=== PATIENT | male | born 1980 | race Caucasian/White ===

== ENCOUNTER 2016-10-21 09:33 | Day surgery (SDC) | payer OTHER, SELFPAY ==
[~2016-10-21 09:33] MED LIST: Dexamethasone 4 MG/ML SDV ONE; Lactated Ringers 1,000 ML IV SCH; Lactated Ringers 1,000 ML ONE; Midazolam 1 MG/ML 2 ML SDV ONE; Propofol 200 MG/20 ML SDV ONE; Sodium Chloride 0.9% 5 ML Syringe FLUSH PRN; ceFAZolin 1 GM Vial ONE; fentaNYL 250 MCG/5 ML SDV ONE
[2016-10-21] MEDS ORDERED: Rocuronium 50 MG/5 ML Vial IV ONE (10:00)
[2016-10-21] MEDS ORDERED: Midazolam 1 MG/ML 2 ML SDV IV ONE (10:00)
[2016-10-21] MEDS ORDERED: fentaNYL 250 MCG/5 ML SDV IV ONE (10:00)
[2016-10-21] MEDS ORDERED: Dexamethasone 4 MG/ML SDV IV ONE (10:00)
[2016-10-21] MEDS ORDERED: Succinylcholine 200 MG/10 ML MDV IV ONE (10:00)
[2016-10-21] MEDS ORDERED: ceFAZolin 1 GM Vial IV ONE (10:00)
[2016-10-21] MEDS ORDERED: Glycopyrrolate 0.2 MG/ML 5 ML MDV IV ONE (10:00)
[2016-10-21] MEDS ORDERED: ePHEDrine 50 MG/ML SDV IV ONE (10:00)
[2016-10-21] MEDS ORDERED: Propofol 200 MG/20 ML SDV IV ONE (10:00)
[2016-10-21] MEDS ORDERED: Neostigmine Methylsulfate 10 MG/10 ML MDV IV ONE (10:00)
[2016-10-21] MEDS ORDERED: Ondansetron 4 MG/2 ML SDV IV ONE (10:00)
[2016-10-21] MEDS ORDERED: Bupivacaine 0.5%/EPINEPHrine 1:200,000 30 ML SDV ONE (10:16)
[2016-10-21] MEDS ORDERED: ceFAZolin 1 GM Vial ONE ×2 (10:16→11:55)
[2016-10-21] MEDS ORDERED: Lactated Ringers 1,000 ML ONE ×2 (10:17→13:00)
[2016-10-21] MEDS ORDERED: Bupivacaine 0.5%/EPINEPHrine 1:200,000 30 ML SDV INFILT ONE (11:55)
[2016-10-21] MEDS ORDERED: Sodium Chloride 0.9% 20 ML SDV ONE (11:55)
[2016-10-21] MEDS ORDERED: Morphine 4 MG/ML Syringe IVPUSH PRN (12:15)
[2016-10-21] MEDS ORDERED: Ondansetron 4 MG/2 ML SDV IVPUSH PRN (12:16)
[2016-10-21] MEDS ORDERED: Morphine 2 MG/ML Syringe IVPUSH PRN (12:16)
[2016-10-21] MEDS ORDERED: fentaNYL 100 MCG/2 ML SDV IVPUSH PRN (12:16)
[2016-10-21] MEDS ORDERED: Metoprolol Tartrate 5 MG/5 ML SDV ONE (13:00)
--- NOTE | 2016-10-21 13:29 | PCM.OPNOTE ---
- General Post-Op/Procedure Note Date of Surgery/Procedure: 10/21/16 Operative Procedure(s): Laparoscopic cholecystectomy Findings: Moderately inflamed gallbladder was identified at surgery. Omental adhesions were present on the surface of the gallbladder. Pre Op Diagnosis: Chronic cholecystitis and cholelithiasis Post-Op Diagnosis: As above Anesthesia Technique: General ET Tube Primary Surgeon: Armando Beltrán Complications: None Condition: Good Free Text/Narrative:: INFORMED CONSENT: This patient is here today because of chronic cholecystitis and cholelithiasis. The operative procedure is laparoscopic cholecystectomy. The operative procedure and risks were discussed including all possible complications including infection, pain, bleeding, bile duct injury, internal organ injury, conversion to open procedure, reoperation, PE, . Anesthetic complications were handled by INSIDE SALES ADVISOR. The patient understands well and wishes to proceed. OPERATION PERFORMED: Laparoscopic cholecystectomy. PROCEDURE: The patient was kept in the supine position and a satisfactory general anesthetic was administered via endotracheal tube. The abdomen was thoroughly prepped and draped in the usual fashion. The supraumbilical fold was infiltrated with 1 mL of Marcaine 0.5% and a curvilinear incision was made. The incision was deepened through the subcutaneous tissue until we came down upon the fascial layer. We then held the fascial layer with two Farzad clamps and then introduced a Verre's needle directly into the abdominal cavity. The position of the needle was ascertained by the aspiration of a small quantity of air, free flow of saline, negative aspiration of blood. We then instilled CO2 gas into the abdominal cavity and developed an abdominal pressure of approximately 15 mm/Hg. At this point we removed the Verre's needle and reintroduced it over a sheath. This was followed by a 5/12.5 trocar and a camera. Inspection revealed a chronically inflamed gallbladder with some omental adhesions. The omental pad was quite thick. The rest of the abdominal contents were normal to visualization. Two 5 mm trocars were placed in the right hypochondriac region, one in the right midclavicular and the second on the anterior clavicle line and a third 11.5 trocar was inserted in the subxiphoid position under direct vision. The patient was then kept in the reverse Trendelenburg position with a slight tilt to the left side. The two ratchets were placed one on the fundus and one at the neck of the gallbladder. Dissection was begun at the neck of the gallbladder and the fat in this area was quite immense. We carefully dissected out the cystic artery and cystic duct separately and encircled both structures at approximately 1 to 1-1/2 cm. The critical view of [place] was obtained. We ligated each structure separately using endo clips. When ligating the cystic duct we made sure not to encroach upon the common duct in any way. We then used a hook cautery and gently dissected the gallbladder off its bed. The base gallbladder fossa was gently cauterized for additional hemostasis. The gallbladder was retrieved through the umbilical port. The alberto hepatis was thoroughly irrigated with normal saline, most of which was aspirated out. The abdomen was then slowly deflated and prior to removal of the last trocar we completely deflated the abdomen. The trocar sites were washed with Betadine solution and the fascial layer was closed with 0 Polysorb and the skin was closed using 4.0 Polysorb in a subcuticular fashion. We then instilled approximately 20 mL of Marcaine 0.5% with epinephrine between the four sites. Sterile pressure dressings were applied. The patient tolerated the procedure well. There were no operative complications. Sponge, needle, and instrument count were correct.
[2016-10-21] MEDS ORDERED: Metoprolol Tartrate 5 MG/5 ML SDV IVPUSH ONE (13:57)
[2016-10-21 17:29] VITALS: BP 147/80
== END 2016-10-21 18:10 | disposition home or self-care (01) ==
LOC: KA.SDS 09:33
PROVIDERS: ATTEND Family Medicine
DX: K80.10 Calculus of gallbladder with chronic cholecystitis without obstruction (principal); Z79.899 Other long term (current) drug therapy; E66.9 Obesity, unspecified; Z68.30 Body mass index [BMI] 30.0-30.9, adult; R53.83 Other fatigue
CPT/HCPCS: 00790; 47562; J0330; J0690; J1100; J2250; J2270; J2405; J2704; J2710; J3010; J7120; J3490

== ENCOUNTER 2017-05-28 08:18 | Emergency (ER) | payer SELFPAY ==
[2017-05-28] MEDS ORDERED: Aspirin 81 MG Tab.Chew PO ONE (08:56)
[2017-05-28] MEDS ORDERED: Nitroglycerin 0.4 MG Tab.SL SL ONE ×2 (08:56→09:30)
[2017-05-28] MEDS ORDERED: Heparin Sodium/D5W 25,000 UNITS/250 ML BAG IV SCH (09:15)
[2017-05-28] MEDS ORDERED: Tenecteplase 50 MG Kit IV ONE (09:21)
[2017-05-28] MEDS ORDERED: Heparin Sodium 5,000 Units/ML Vial IVPUSH ONE (09:27)
[2017-05-28 09:32] VITALS: BP 133/73
--- NOTE | 2017-05-28 09:42 | EDM.PDOC ---
ED HPI GENERAL MEDICAL PROBLEM - General Chief Complaint: Chest Pain Time Seen by Provider: 05/28/17 08:43 Source of Information: Reports: Patient History Limitations: Reports: No Limitations - History of Present Illness INITIAL COMMENTS - FREE TEXT/NARRATIVE: Patient presents with pain in mid-epigastrium that started at 0730 (while at work) with a sharp stabbing sensation and then a squeezing feeling that has persisted at a rating of 3-4/10. He also had a cold sweat and a feeling of cold running down anteriorly to both legs. No pain in upper chest, neck, jaw, shoulder or arms. He smokes but no diabetes or other identifiable cardiac risks or family history. He takes omeprazole for GERD but this doesn't feel like that he says. He had gallbladder surgery a year ago. Chest Pain Score (Numeric/FACES): 4 - Related Data Allergies Allergy/AdvReac Type Severity Reaction Status Date / Time No Known Drug Allergies Allergy Cannot Verified 05/28/17 08:35 Remember Home Meds: Home Meds Omeprazole 20 mg PO DAILY 11/11/15 [History] Past Medical History - Past Health History Medical/Surgical History: Denies Medical/Surgical History Respiratory History: Reports: Other (See Below) Other Respiratory History: borderline emphysema Gastrointestinal History: Reports: GERD, Other (See Below) Other Gastrointestinal History: abdominal pain - Infectious Disease History Infectious Disease History: Reports: None - Past Surgical History GI Surgical History: Reports: Cholecystectomy Social & Family History - Family History Cardiac: Reports: Hypertension Oncologic: Reports: Esophageal - Tobacco Use Smoking Status *Q: Current Every Day Smoker Years of Tobacco use: 19 Packs/Tins Daily: 1 Second Hand Smoke Exposure: Yes - Caffeine Use Caffeine Use: Reports: Coffee, Soda - Recreational Drug Use Recreational Drug Use: No ED ROS GENERAL - Review of Systems Review Of Systems: See Below Constitutional: Reports: Chills, Diaphoresis. Denies: Fever, Weakness HEENT: Denies: Throat Pain, Vision Change Respiratory: Denies: Shortness of Breath Cardiovascular: Reports: Chest Pain (lower middle/mid-epigastrium). Denies: Blood Pressure Problem, Lightheadedness, Syncope GI/Abdominal: Reports: Abdominal Pain (mid-epigastrium). Denies: Nausea, Vomiting : Reports: No Symptoms Musculoskeletal: Denies: Neck Pain, Shoulder Pain, Arm Pain, Back Pain, Hand Pain, Leg Pain Skin: Denies: Cyanosis, Jaundice, Mottled, Pallor, Diaphoresis Neurological: Denies: Confusion, Dizziness, Headache, Seizure, Syncope, Trouble Speaking, Difficulty Walking Psychiatric: Reports: Anxiety (after hearing diagnosis is somewhat anxious). Denies: Agitation Hematologic/Lymphatic: Denies: Easy Bleeding ED EXAM, GENERAL - Physical Exam Exam: See Below Exam Limited By: No Limitations General Appearance: Alert, WD/WN, No Apparent Distress Eye Exam: Bilateral Eye: EOMI, Normal Inspection, PERRL Ears: Normal External Exam, Hearing Grossly Normal Nose: Normal Inspection, No Blood Throat/Mouth: Normal Inspection, Normal Lips, Normal Voice, No Airway Compromise Head: Atraumatic, Normocephalic Neck: Normal Inspection, Supple, Full Range of Motion Respiratory/Chest: No Respiratory Distress, Lungs Clear, Normal Breath Sounds, No Accessory Muscle Use, Chest Non-Tender Cardiovascular: Normal Peripheral Pulses, Regular Rate, Rhythm, No Edema, No Gallop, No JVD, No Murmur Peripheral Pulses: 2+: Brachial (L), Brachial (R), Posterior Tibial (L), Posterior Tibial (R) GI/Abdominal: Normal Bowel Sounds, Soft, Non-Tender, No Organomegaly, No Distention Extremities: Normal Inspection, Normal Range of Motion, Non-Tender, No Pedal Edema Neurological: Alert, Oriented, Normal Cognition, No Motor/Sensory Deficits Psychiatric: Normal Affect, Normal Mood Skin Exam: Warm, Dry, Intact, Normal Color, No Rash Course - Vital Signs Last Recorded V/S: Last Vital Signs Temp 97.2 F 05/28/17 08:34 Pulse 85 05/28/17 09:10 Resp 20 05/28/17 09:10 BP 133/73 05/28/17 09:31 Pulse Ox 94 L 05/28/17 09:10 - Orders/Labs/Meds Orders: Active Orders 24 hr Category Date Time Status EKG Documentation Completion [RC] ASDIRECTED Care 05/28/17 08:23 Active Chest 1V Frontal [CR] Stat Exams 05/28/17 Ordered Heparin Sodium/D5W Med 05/28/17 09:15 Ordered 25,000 units in 250 ml IV TITRATE Nitroglycerin 25 MG in D5W @ 10 MCG/MIN (250ml) Premix Med 05/28/17 09:45 Ordered Nitroglycerin/D5W [Nitroglycerin 25 MG/D5W 250 ML] 25 mg in 250 ml IV TITRATE EKG 12 Lead [EK] Routine Ther 05/28/17 08:23 Ordered Medication Orders Heparin Sodium/Dextrose () 25,000 units in 250 mls @ 11.975 mls/hr IV TITRATE AMELIA; 12 UNITS/KG/HR PRN Reason: Protocol Last Admin: 05/28/17 09:29 Dose: 12 units/kg/hr, 11.975 mls/hr Nitroglycerin/Dextrose (Nitroglycerin 25 Mg/D5w 250 Ml) 25 mg in 250 mls @ 6 mls/hr IV TITRATE AMELIA; 10 MCG/MIN PRN Reason: Protocol Labs: Laboratory Tests 05/28/17 05/28/17 05/28/17 Range/Units 09:10 09:10 09:10 WBC 7.9 (5.0-10.0) 10^3/uL RBC 5.46 (4.50-6.00) 10^6/uL Hgb 15.7 (13.0-17.0) g/dL Hct 48.5 (40.0-52.0) % MCV 88.9 (82.0-92.0) fL MCH 28.8 (27.0-31.0) pg MCHC 32.4 (32.0-36.0) g/dL RDW 12.6 (11.5-14.5) % Plt Count 283 (150-300) 10^3/uL MPV 7.6 (7.4-10.4) fL Neut % (Auto) 54.0 (50.0-70.0) % Lymph % (Auto) 33.2 (20.0-40.0) % Ceiba % (Auto) 7.0 (2.0-8.0) % Eos % (Auto) 5.6 H (1.0-3.0) % Baso % (Auto) 0.2 (0.0-1.0) % Neut # (Auto) 4.3 (2.5-7.0) 10^3/uL Lymph # (Auto) 2.6 (1.0-4.0) 10^3/uL Ceiba # (Auto) 0.6 (0.1-0.8) 10^3/uL Eos # (Auto) 0.4 H (0.1-0.3) 10^3/uL Baso # (Auto) 0.0 (0.0-0.1) 10^3/uL PT (8.9-11.4) SEC INR (0.9-1.1) APTT (20.8-31.2) SEC Sodium 139 (136-145) mmol/L Potassium 4.0 (3.3-5.3) mmol/L Chloride 105 (98-115) mmol/L Carbon Dioxide 24.3 (21.0-32.0) mmol/L BUN 19 (6-25) mg/dL Creatinine 1.09 (0.51-1.17) mg/dL Est Cr Clr Drug Dosing 93.95 mL/min Estimated GFR (MDRD) > 60 mL/min Glucose 92 (70-110) mg/dL Calcium 8.6 L (8.7-10.3) mg/dL Magnesium 1.9 (1.8-2.4) mg/dL Total Bilirubin 0.5 (0.2-1.0) mg/dL AST 32 (15-37) U/L ALT 56 (12-78) U/L Alkaline Phosphatase 99 (46-116) IU/L Troponin I 0.06 (0.00-0.070) ng/mL Total Protein 7.4 (6.4-8.2) g/dL Albumin 3.85 (3.00-4.80) g/dL Lipase 125 (73-393) U/L 05/28/17 Range/Units 09:10 WBC (5.0-10.0) 10^3/uL RBC (4.50-6.00) 10^6/uL Hgb (13.0-17.0) g/dL Hct (40.0-52.0) % MCV (82.0-92.0) fL MCH (27.0-31.0) pg MCHC (32.0-36.0) g/dL RDW (11.5-14.5) % Plt Count (150-300) 10^3/uL MPV (7.4-10.4) fL Neut % (Auto) (50.0-70.0) % Lymph % (Auto) (20.0-40.0) % Ceiba % (Auto) (2.0-8.0) % Eos % (Auto) (1.0-3.0) % Baso % (Auto) (0.0-1.0) % Neut # (Auto) (2.5-7.0) 10^3/uL Lymph # (Auto) (1.0-4.0) 10^3/uL Ceiba # (Auto) (0.1-0.8) 10^3/uL Eos # (Auto) (0.1-0.3) 10^3/uL Baso # (Auto) (0.0-0.1) 10^3/uL PT 9.4 (8.9-11.4) SEC INR 0.9 (0.9-1.1) APTT 26.0 (20.8-31.2) SEC Sodium (136-145) mmol/L Potassium (3.3-5.3) mmol/L Chloride (98-115) mmol/L Carbon Dioxide (21.0-32.0) mmol/L BUN (6-25) mg/dL Creatinine (0.51-1.17) mg/dL Est Cr Clr Drug Dosing mL/min Estimated GFR (MDRD) mL/min Glucose (70-110) mg/dL Calcium (8.7-10.3) mg/dL Magnesium (1.8-2.4) mg/dL Total Bilirubin (0.2-1.0) mg/dL AST (15-37) U/L ALT (12-78) U/L Alkaline Phosphatase (46-116) IU/L Troponin I (0.00-0.070) ng/mL Total Protein (6.4-8.2) g/dL Albumin (3.00-4.80) g/dL Lipase (73-393) U/L Meds: Medications Generic Name Dose Route Start Last Admin Trade Name Freq PRN Reason Stop Dose Admin Heparin Sodium/Dextrose 25,000 units in 250 mls @ 11.975 mls/hr 05/28/17 09: 15 05/28/17 09:29 IV 12 units/kg/hr TITRATE AMELIA 11.975 mls/hr Protocol Administration 12 UNITS/KG/HR Nitroglycerin/Dextrose 25 mg in 250 mls @ 6 mls/hr 05/28/17 09:45 Nitroglycerin 25 Mg/D5w 250 Ml IV TITRATE AMELIA Protocol 10 MCG/MIN Discontinued Medications Generic Name Dose Route Start Last Admin Trade Name Enrico PRN Reason Stop Dose Admin Aspirin 324 mg 05/28/17 08:56 05/28/17 09:01 Aspirin PO 05/28/17 08:57 324 mg ONETIME ONE Administration Heparin Sodium (Porcine) 4,000 units 05/28/17 09:27 05/28/17 09:28 Heparin Sodium IVPUSH 05/28/17 09:28 4,000 units .BOLUS ONE Administration Nitroglycerin 0.4 mg 05/28/17 08:56 05/28/17 09:03 Nitrostat SL 05/28/17 08:57 0.4 mg ONETIME ONE Administration Nitroglycerin 0.4 mg 05/28/17 09:30 05/28/17 09:31 Nitrostat SL 05/28/17 09:31 0.4 mg ONETIME ONE Administration Tenecteplase 50 mg 05/28/17 09:21 05/28/17 09:40 Tnkase IV 05/28/17 09:22 50 mg ONETIME ONE Administration Protocol - Re-Assessments/Exams Free Text/Narrative Re-Assessment/Exam: 05/28/17 09:[address] elevation, less than 2 mm but still suspicious. I faxed to export sales manager (Dr. Dyson) at [facility] in [place] who is calling it STEMI and recommends Heparin bolus and drip and since he won't get up there for over an hour recommends lytic therapy. She wants him flown there but the weather doesn' t allow chopper and fixed wing would take longer than ground so we are transferring via ALS ground [facility]. He denies any recent surgery, stroke or brain bleeds, coagulation therapy. TNK contraindication sheet is reviewed and okay to proceed. TNK, heparin bolus and drip, nitro sl and drip and ASA 324 have been given. Following the initial nitro sublingual the pain quickly went completely away. Discussed findings and treatment plan with patient and his and daughters. Patient has remained stable throughout ER course. Departure - Departure Time of Disposition: 09:47 Disposition: DC/Tfer to Acute Hospital 02 Reason for Transfer *Q: Primary PCI Indicated Condition: Good Clinical Impression: STEMI (ST elevation myocardial infarction) Qualifiers: Involved coronary artery: unspecified coronary artery Qualified Code(s): I21.3 - ST elevation (STEMI) myocardial infarction of unspecified site Referrals: PCP,None [Primary Care Provider] - Forms: ED Department Discharge - My Orders Last 24 Hours: My Active Orders 05/28/17 Chest 1V Frontal [CR] Stat 05/28/17 08:23 EKG Documentation Completion [RC] ASDIRECTED EKG 12 Lead [EK] Routine 05/28/17 09:15 Heparin Sodium/D5W 25,000 units in 250 ml IV TITRATE 05/28/17 09:45 Nitroglycerin 25 MG in D5W @ 10 MCG/MIN (250ml) Premix Nitroglycerin/D5W [ Nitroglycerin 25 MG/D5W 250 ML] 25 mg in 250 ml IV TITRATE - Assessment/Plan Last 24 Hours: My Active Orders 05/28/17 Chest 1V Frontal [CR] Stat 05/28/17 08:23 EKG Documentation Completion [RC] ASDIRECTED EKG 12 Lead [EK] Routine 05/28/17 09:15 Heparin Sodium/D5W 25,000 units in 250 ml IV TITRATE 05/28/17 09:45 Nitroglycerin 25 MG in D5W @ 10 MCG/MIN (250ml) Premix Nitroglycerin/D5W [ Nitroglycerin 25 MG/D5W 250 ML] 25 mg in 250 ml IV TITRATE
[2017-05-28] MEDS ORDERED: DEXTROSE IV ONE (09:45)
[2017-05-28] MEDS ORDERED: NITROGLYCERIN IV ONE (09:45)
[2017-05-28] MEDS ORDERED: Nitroglycerin/D5W 25 MG/250 ML BOTTLE IV SCH (09:45)
[2017-05-28 09:51] LABS: CHLORIDE,CL 105 mmol/L (98-115); SODIUM,NA 139 mmol/L (136-145)
== END 2017-05-28 09:52 ==
LOC: KA.ED 08:18
DX: I21.3 ST elevation (STEMI) myocardial infarction of unspecified site (principal); F17.210 Nicotine dependence, cigarettes, uncomplicated; Z79.899 Other long term (current) drug therapy
CPT/HCPCS: 36415; 71045; 80053; 83690; 83735; 84484; 85025; 85610; 85730; 96365; 96375; 99285; A9270-GY; J1644; J3101

== ENCOUNTER 2017-06-28 08:07 | Day surgery (SDC) | payer SELFPAY ==
[2017-06-28] MEDS ORDERED: Midazolam 1 MG/ML 2 ML SDV ONE (08:11)
[2017-06-28] MEDS ORDERED: Lidocaine 2% 5 ML SDV ONE (08:12)
[2017-06-28] MEDS ORDERED: fentaNYL 100 MCG/2 ML SDV ONE (08:12)
[2017-06-28] MEDS ORDERED: Propofol 200 MG/20 ML SDV ONE (08:12)
[2017-06-28] MEDS ORDERED: EPINEPHrine 1:10,000 1 MG/10 ML Syringe ONE (08:13)
[2017-06-28] MEDS ORDERED: Lactated Ringers 1,000 ML IV SCH (08:30)
[2017-06-28] MEDS ORDERED: Sodium Chloride 0.9% 5 ML Syringe FLUSH PRN (08:30)
[2017-06-28] MEDS ORDERED: fentaNYL 100 MCG/2 ML SDV IV ONE (10:21)
[2017-06-28] MEDS ORDERED: Midazolam 1 MG/ML 2 ML SDV IV ONE (10:21)
[2017-06-28] MEDS ORDERED: Propofol 200 MG/20 ML SDV IV ONE (10:21)
--- NOTE | 2017-06-28 10:54 | PCM.OPNOTE ---
- General Post-Op/Procedure Note Date of Surgery/Procedure: 06/28/17 Operative Procedure(s): Upper GI endoscopy with biopsies. Findings: This patient has evidence of moderate to severe reflux esophagitis and a hiatal hernia. Also has mild antral gastritis and a few gastric polyps. Biopsies were taken of the largest gastric polyp. Anesthesia Technique: MAC Primary Surgeon: Armando Beltrán Condition: Good Free Text/Narrative:: INFORMED CONSENT: Patient is here today for elective upper GI endoscopy. All aspects of this procedure have been discussed with the patient. All possible complications also, including possibility of perforation, infection, pain, bleeding, numbness of the throat, swallowing difficulty and unknown complications. In the event of perforation the patient may need surgical exploration to repair the defect. The patient understands fully well. Patient did not have any further questions for me at the end of my interview. The patient wishes for me to proceed. INSTRUMENT USED: Video gastroscope ANESTHESIA: [MAC] ASA CLASSIFICATION: [2] PROCEDURE PERFORMED: [Upper gastrointestinal endoscopy with biopsies.] PHARYNX: Normal. ESOPHAGUS: Normal. Proximal: Normal. Middle: Normal. Lower: Normal. GE Junction: Moderate to severe reflux is noted. There is a 5 cm hiatal hernia noted.. STOMACH: Normal. Cardia: Normal. Fundus: Normal. Lesser Curvature: Normal. Greater Curvature: A few gastric polyps noted. Biopsies taken from the largest gastric polyp using hot biopsy forceps.. Antrum: Moderate inflammation noted.. Pylorus: Normal. DUODENUM: Normal. First Part: Normal. Second Part: Normal. Third Part: Normal. RETROFLEXION: Normal. BIOPSY: None. TOLERANCE: Excellent. COMPLICATIONS: None. 1. Moderate severe reflux noted. 2. A few gastric polyps noted. 3. Moderate antral gastritis noted.
[2017-06-28 11:39] VITALS: BP 120/63
== END 2017-06-28 12:00 | disposition home or self-care (01) ==
LOC: KA.SDS 08:07
PROVIDERS: ATTEND Family Medicine
DX: K31.7 Polyp of stomach and duodenum (principal); L92.8 Other granulomatous disorders of the skin and subcutaneous tissue; K21.9 Gastro-esophageal reflux disease without esophagitis; K44.9 Diaphragmatic hernia without obstruction or gangrene; Z87.891 Personal history of nicotine dependence; Z79.899 Other long term (current) drug therapy
CPT/HCPCS: 00731; J2250; J2704; J3010; J7120

== ENCOUNTER 2017-07-13 10:41 | Day surgery (SDC) | payer SELFPAY ==
[2017-07-13] MEDS ORDERED: EPINEPHrine 1:10,000 1 MG/10 ML Syringe ONE (10:50)
[2017-07-13] MEDS ORDERED: Sodium Chloride 0.9% 5 ML Syringe FLUSH PRN (11:00)
[2017-07-13] MEDS ORDERED: Lactated Ringers 1,000 ML IV SCH (11:00)
[2017-07-13] MEDS ORDERED: Propofol 200 MG/20 ML SDV ONE (11:10)
[2017-07-13] MEDS ORDERED: Midazolam 1 MG/ML 2 ML SDV ONE (11:10)
[2017-07-13] MEDS ORDERED: fentaNYL 100 MCG/2 ML SDV ONE (11:10)
[2017-07-13] MEDS ORDERED: Propofol 200 MG/20 ML SDV IV ONE (12:11)
[2017-07-13] MEDS ORDERED: Midazolam 1 MG/ML 2 ML SDV IV ONE (12:11)
[2017-07-13] MEDS ORDERED: fentaNYL 100 MCG/2 ML SDV IV ONE (12:11)
--- NOTE | 2017-07-13 12:55 | PCM.PRNOTE ---
- Free Text/Narrative Note: INFORMED CONSENT: Patient is here today for elective colonoscopy. All aspects of this procedure have been discussed with the patient. All possible complications also, including possibility of perforation, infection, pain, bleeding and unknown complications. In the event of perforation patient may need to have abdominal exploration, colon resection, colostomy and even was discussed. Anesthetic complications were handled by anesthesia department. The patient understands fully well. Patient did not have any further questions for me at the end of my interview. The patient wishes for me to proceed. PREOPERATIVE DIAGNOSIS/INDICATIONS: [Abdominal pain, alteration of bowel habits ] POSTOPERATIVE DIAGNOSIS: [Moderately large internal hemorrhoids at the 7:00 11 o'clock position] INSTRUMENT USED: Olympus videocolonoscope. ASA CLASSIFICATION: [2] ANESTHESIA: Continuous EKG, oximetry and intermittent blood pressure and respiratory monitoring were performed throughout the procedure. IV Versed and Fentanyl were administered. PROCEDURE PERFORMED: Colonoscopy POSITIONS OF PATIENT: Left lateral. RECTUM: Moderately large internal hemorrhoids at the 7:00 11:00 positions.. SIGMOID COLON: Somewhat tortuous.. DESCENDING COLON: Normal. SPLENIC FLEXURE: Normal. TRANSVERSE COLON: Normal. HEPATIC FLEXURE: Normal. ASCENDING COLON: Normal. CECUM: Normal. ILEOCECAL VALVE: Normal. BIOPSY: None. TOLERANCE: Excellent. COMPLICATIONS: None.
[2017-07-13 15:56] VITALS: BP 116/68
== END 2017-07-13 14:20 | disposition home or self-care (01) ==
LOC: KA.SDS 10:41
PROVIDERS: ATTEND Family Medicine
DX: K64.8 Other hemorrhoids (principal); E66.9 Obesity, unspecified; Z68.33 Body mass index [BMI] 33.0-33.9, adult; K21.0 Gastro-esophageal reflux disease with esophagitis; G47.00 Insomnia, unspecified; E78.00 Pure hypercholesterolemia, unspecified; Z79.82 Long term (current) use of aspirin; Z79.899 Other long term (current) drug therapy
CPT/HCPCS: 00812; J2250; J2704; J3010; J7120